=== PATIENT | male | born 1985 | race African-American/Black ===

== ENCOUNTER 2016-11-30 14:56 | Emergency (ER) | payer OTHER, MEDICARE, BC ==
[2016-11-30 15:16] VITALS: BP 161/105
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
[2016-11-30] MEDS ORDERED: CYCL10TA2 PO (15:41)
== END 2016-11-30 16:04 | disposition home or self-care (01) ==
LOC: ER 14:56
DX: S16.1XXA Strain of muscle, fascia and tendon at neck level, initial encounter (principal); I10 Essential (primary) hypertension; J45.909 Unspecified asthma, uncomplicated; R51 Headache; G47.30 Sleep apnea, unspecified; Z88.8 Allergy status to other drugs, medicaments and biological substances; V46.4XXA Person boarding or alighting a car injured in collision with other nonmotor vehicle, initial encounter; Y93.89 Activity, other specified; Y99.8 Other external cause status; Y92.488 Other paved roadways as the place of occurrence of the external cause
CPT/HCPCS: 99283

== ENCOUNTER 2019-03-19 12:13 | Emergency (ER) | payer MEDICARE, OTHER ==
[~2019-03-19] VITALS: Ht 172.7 cm; Wt 120.0 kg
[~2019-03-19 12:13] MED LIST: CYCL10TA2 PO; ERYT1OIN6 RIGHTEYE
--- NOTE | 2019-03-19 13:14 | PHYS DOC ---
Past Medical History Past Medical History: Asthma, GERD, Hypertension, Other Additional Past Medical Histor: SLEEP APNEA Past Surgical History: Tonsillectomy, Other Additional Past Surgical Histo: TESTICLE REMOVAL Alcohol Use: None Drug Use: Marijuana Adult General Chief Complaint Chief Complaint: ABDOMINAL PAIN HPI HPI Patient is a 34 year old male who presents with 2 days of dry cough, fever, nausea, diarrhea, nasal congestion and body aches. Patient denies any abdominal pain, chest pain, shortness of breath, numbness or tingling, headache, dizziness, weakness, vomiting. He rates his overall discomfort an 8 out of 10. He states that for the last 6 months or so he has been on clarithromycin, amoxicillin, Flagyl, omeprazole for a stomach infection. Patient states he is not sure what the infection is called. He states he has had no colon problems the past. He states on Monday he began having runny stools without blood in them. He shouldn't has a history of hypertension, GERD, asthma and he is a smoker. Review of Systems Review of Systems Constitutional: fever or chills [] HENT: nasal congestion or denies sore throat [] Respiratory: cough or denies shortness of breath [] GI: Denies abdominal pain. + nausea, denies vomiting, bloody stools or+diarrhea [] Musculoskeletal: Bodyaches. Denies back pain or joint pain [] I All other systems were reviewed and found to be within normal limits, except as documented in this note. Current Medications Current Medications Current Medications Medications (Trade) Dose Ordered Sig/Shannen Start Time Stop Time Status Last Admin Dose Admin Albuterol Sulfate (Ventolin Neb Soln) 2.5 mg 1X ONCE 03/19/19 13:45 03/19/19 13:46 DC 03/19/19 13:37 2.5 MG Iohexol (Omnipaque 300 Mg/ml) 75 ml 1X ONCE 03/19/19 13:45 03/19/19 13:46 DC 03/19/19 13:45 75 ML Ondansetron HCl (Zofran) 4 mg 1X ONCE 03/19/19 13:45 03/19/19 13:46 DC 03/19/19 13:22 4 MG Prednisone (Prednisone) 50 mg 1X ONCE 03/19/19 13:45 03/19/19 13:46 DC 1/21/20 13:23 50 MG Sodium Chloride 1,000 ml @ 1,000 mls/hr 1X ONCE 03/19/19 13:15 03/19/19 14:14 DC 03/19/19 13:21 1,000 MLS/HR Allergies Allergies Allergies Coded Allergies Type Severity Reaction Last Updated Verified lisinopril Adverse Reaction Unknown 12/31/14 No Physical Exam Physical Exam Constitutional: Well developed, well nourished, no acute distress, non-toxic appearance. [] HENT: Normocephalic, atraumatic, bilateral external ears normal, oropharynx moist, no oral exudates, nose normal. Bilateral Tympanic pink and foggy. [] Eyes: PERRLA, EOMI, conjunctiva normal, no discharge. [] Neck: Normal range of motion, no tenderness, supple, no stridor. [] Cardiovascular:Heart rate regular rhythm, no murmur [] Lungs & Thorax: Bilateral breath sounds clear but tighter in upper lobes to auscultation [] Abdomen: Bowel sounds normal, soft, no tenderness, no masses, no pulsatile masses. [] Skin: Warm, dry, no erythema, no rash. [] Back: No tenderness, no CVA tenderness. [] Extremities: No tenderness, no cyanosis, no clubbing, ROM intact, no edema. [] Neurologic: Alert and oriented X 3, normal motor function, normal sensory function, no focal deficits noted. [] Psychologic: Affect normal, judgement normal, mood normal. [] Current Patient Data Vital Signs Vital Signs Date Time Temp Pulse Resp B/P (MAP) Pulse Ox O2 Delivery O2 Flow Rate FiO2 03/19/19 14:28 87 158/103 (121) 100 Room Air 03/19/19 12:27 99.1 16 99.1 Lab Values Laboratory Tests Test 03/19/19 13:07 03/19/19 13:10 White Blood Count 6.6 x10^3/uL (4.0-11.0) Red Blood Count 5.23 x10^6/uL (4.30-5.70) Hemoglobin 14.1 g/dL (13.0-17.5) Hematocrit 42.0 % (39.0-53.0) Mean Corpuscular Volume 80 fL (79-100) Mean Corpuscular Hemoglobin 27 pg (25-35) Mean Corpuscular Hemoglobin Concent 34 g/dL (31-37) Red Cell Distribution Width 17.0 % (11.5-14.5) H Platelet Count 329 x10^3/uL (140-400) Neutrophils (%) (Auto) 34 % (31-73) Lymphocytes (%) (Auto) 54 % (24-48) H Monocytes (%) (Auto) 8 % (0-9) Eosinophils (%) (Auto) 2 % (0-3) Basophils (%) (Auto) 2 % (0-3) Neutrophils # (Auto) 2.3 x10^3/uL (1.8-7.7) Lymphocytes # (Auto) 3.6 x10^3/uL (1.0-4.8) Monocytes # (Auto) 0.5 x10^3/uL (0.0-1.1) Eosinophils # (Auto) 0.2 x10^3/uL (0.0-0.7) Basophils # (Auto) 0.1 x10^3/uL (0.0-0.2) Sodium Level 139 mmol/L (136-145) Potassium Level 3.1 mmol/L (3.5-5.1) L Chloride Level 100 mmol/L (98-107) Carbon Dioxide Level 27 mmol/L (21-32) Anion Gap 12 (6-14) Blood Urea Nitrogen 13 mg/dL (8-26) Creatinine 1.0 mg/dL (0.7-1.3) Estimated GFR (Cockcroft-Gault) 102.9 BUN/Creatinine Ratio 13 (6-20) Glucose Level 102 mg/dL (70-99) H Calcium Level 8.9 mg/dL (8.5-10.1) Total Bilirubin 0.2 mg/dL (0.2-1.0) Aspartate Amino Transferase (AST) 34 U/L (15-37) Alanine Aminotransferase (ALT) 44 U/L (16-63) Alkaline Phosphatase 68 U/L (46-116) Troponin I Quantitative < 0.017 ng/mL (0.000-0.055) Total Protein 7.7 g/dL (6.4-8.2) Albumin 4.0 g/dL (3.4-5.0) Albumin/Globulin Ratio 1.1 (1.0-1.7) Influenza Type A Antigen Negative (NEGATIVE) Influenza Type B Antigen Negative (NEGATIVE) Laboratory Tests 03/19/19 13:07 Laboratory Tests 03/19/19 13:07 EKG EKG [] Radiology/Procedures Radiology/Procedures [] Impressions: [facility] [address] [place] [address] IMAGING REPORT Signed PATIENT: LUIS GONCALVES ACCOUNT: [id number] : 1985 LOCATION: ER AGE: 34 SEX: M EXAM STATUS: REG ER ORD. PHYSICIAN: MIREYA QUIÑONES APRN REASON: cough PROCEDURE: CHEST PA & LATERAL Chest, PA and Lateral: Technique: PA and lateral views of the chest were obtained. History: Cough. Comparison: 07/25/2015. Findings: The heart and pulmonary vasculature appear within normal limits. The lungs are clear. The pleural margins are clear. Impression: No acute chest process is seen. Electronically signed by: Billy Chirinos MD (03/19/2019 2:56 PM) [place] [id number] DICTATED and SIGNED BY: BILLY CHIRINOS MD DATE: 03/19/19 [address] [place] [id number] [place] [address] IMAGING REPORT Signed PATIENT: LUIS GONCALVES ACCOUNT: [id number] : 1985 LOCATION: ER AGE: 34 SEX: M EXAM STATUS: REG ER ORD. PHYSICIAN: MIREYA QUIÑONES APRN REASON: diarrhea, on many abx PROCEDURE: CT ABD PELV W/ IV CONTRST ONLY Examination: CT of the abdomen pelvis with IV contrast HISTORY: History of diarrhea COMPARISON: None available TECHNIQUE: Axial CT images of the abdomen pelvis were performed with IV contrast. Coronal and sagittal reformats are performed. Exposure: One or more of the following individualized dose reduction techniques were utilized for this examination: 1. Automated exposure control 2. Adjustment of the mA and/or kV according to patient size 3. Use of iterative reconstruction technique FINDINGS: The bibasilar lungs are clear. No evidence of free air identified in the abdomen. The liver, spleen, adrenals grossly appears unremarkable. Gallbladder is mildly distended. The stomach is mildly distended. The visualized pancreas grossly appears unremarkable. The small bowel is nondilated. Feces and gas noted in the colon. The appendix is normal. Urinary bladder is mildly distended. The bilateral kidneys enhance symmetrically. No evidence of hydronephrosis. No evidence of lytic bony destructive lesion. IMPRESSION: 1. No acute intra-abdominal findings. Electronically signed by: Billy Chirinos MD (03/19/2019 2:51 PM) [place] [id number] DICTATED and SIGNED BY: BILLY CHIRINOS MD DATE: 03/19/19 1451 Course & Med Decision Making Course & Med Decision Making Alert and oriented. Skin pink warm and dry. Speaks in full clear sentences. Ambulatory to steady gait. PERRLA. Abdomen is soft and nontender. Bilateral tympanic are pink and foggy. Throat is pink without states her swelling. Lungs are clear to auscultation in all lobes but sound tighter in upper lobes. No wheezing. No extremity edema. A concerns for this patient would be 1. asthma exacerbation, 2. C. difficile, 3. Flu. ] Influenza negative. Chest x-ray shows no acute findings. Patient has not had any diarrhea stools in the emergency room. CT abdomen and pelvis show no acute findings. Since the diarrhea started when off his other URI symptoms started this is likely viral. I'll put him on a Medrol Dosepak and he is to call his physician tomorrow for follow-up. Patient needs to have no abdominal pain. Dragon Disclaimer Dragon Disclaimer This electronic medical record was generated, in whole or in part, using a voice recognition dictation system. Departure Departure Impression: Primary Impression: Cough Additional Impressions: Fever Nausea Diarrhea Disposition: HOME, SELF-CARE Condition: STABLE Referrals: Madhavi BURGOS MD (PCP) Patient Instructions: Cough, Adult, Diarrhea, [id number], Diet for Diarrhea, Adult, Nausea, Adult Additional Instructions: Follow-up with Dr. Burgos by calling him tomorrow and let him know. Take medication as prescribed. Drink plenty of fluids. Start Medrol Dosepak tomorrow. Scripts Albuterol Sulfate (Proair Hfa) 8.5 Gm Hfa.aer.ad 1 PUFF INH PRN Q6HRS PRN for SHORTNESS OF BREATH, #1 INHALER Prov: MIREYA QUIÑONES SUPERVISORY INVESTIGATIVE SPECIALIST 03/19/19 Ondansetron (ONDANSETRON ODT) 4 Mg Tab.rapdis 1 TAB PO PRN Q6-8HRS, #16 TAB Prov: INESTERESOMIREYA Sara SUPERVISORY INVESTIGATIVE SPECIALIST 03/19/19 Methylprednisolone (MEDROL) 4 Mg Tab.ds.pk 1 PKG PO UD, #1 PKG Prov: ISHMAELMIREYA M SUPERVISORY INVESTIGATIVE SPECIALIST 03/19/19 Problem Qualifiers Additional Impressions: Fever Fever type: unspecified Qualified Codes: R50.9 - Fever, unspecified Diarrhea Diarrhea type: unspecified type Qualified Codes: R19.7 - Diarrhea, unspecified MIREYA QUIÑONES SUPERVISORY INVESTIGATIVE SPECIALIST Mar 19, 2019 13:14
[2019-03-19 13:20] LABS: BASO # 0.1 x10^3/uL (0.0-0.2); BASO % 2 % (0-3); EOS # 0.2 x10^3/uL (0.0-0.7); EOS % 2 % (0-3); HEMOGLOBIN 14.1 g/dL (13.0-17.5); LYMPH # 3.6 x10^3/uL (1.0-4.8); LYMPH % 54 % (24-48); MEAN CORPUSCULAR HEMOGLOBIN 27 pg (25-35); MEAN CORPUSCULAR HGB CONC 34 g/dL (31-37); MEAN CORPUSCULAR VOLUME 80 fL (79-100); MONO # 0.5 x10^3/uL (0.0-1.1); MONO % 8 % (0-9); NEUT # 2.3 x10^3/uL (1.8-7.7); NEUT % 34 % (31-73); PLATELET COUNT 329 x10^3/uL (140-400); RED BLOOD COUNT 5.23 x10^6/uL (4.30-5.70); WHITE BLOOD COUNT 6.6 x10^3/uL (4.0-11.0)
[2019-03-19] MEDS: IV NORMAL SALINE 1000ML BAG 1,000 ML IV ONE (13:21)
[2019-03-19] MEDS: ONDANSETRON PF 4 MG/2 ML VIAL. IVP ONE (13:22)
[2019-03-19] MEDS: predniSONE 10 MG TABLET PO ONE (13:23)
[2019-03-19 13:33] LABS: CALCIUM 8.9 mg/dL (8.5-10.1); GFR 102.9; POTASSIUM 3.1 mmol/L (3.5-5.1)
[2019-03-19 13:36] LABS: INFLUENZA A PATIENT NEGATIVE (NEGATIVE); INFLUENZA B PATIENT NEGATIVE (NEGATIVE)
[2019-03-19] MEDS: ALBUTEROL SULFATE 2.5 MG/3 ML NEBU. NEB ONE (13:37)
[2019-03-19 13:38] LABS: ALBUMIN/GLOBULIN RATIO 1.1 (1.0-1.7); TOTAL BILIRUBIN 0.2 mg/dL (0.2-1.0); TOTAL PROTEIN 7.7 g/dL (6.4-8.2)
[2019-03-19] MEDS: IOHEXOL 300 MG/ML 100ML VIAL. IV ONE (13:45)
--- NOTE | 2019-03-19 14:54 | RAD ---
Examination: CT of the abdomen pelvis with IV contrast HISTORY: History of diarrhea COMPARISON: None available TECHNIQUE: Axial CT images of the abdomen pelvis were performed with IV contrast. Coronal and sagittal reformats are performed. Exposure: One or more of the following individualized dose reduction techniques were utilized for this examination: 1. Automated exposure control 2. Adjustment of the mA and/or kV according to patient size 3. Use of iterative reconstruction technique FINDINGS: The bibasilar lungs are clear. No evidence of free air identified in the abdomen. The liver, spleen, adrenals grossly appears unremarkable. Gallbladder is mildly distended. The stomach is mildly distended. The visualized pancreas grossly appears unremarkable. The small bowel is nondilated. Feces and gas noted in the colon. The appendix is normal. Urinary bladder is mildly distended. The bilateral kidneys enhance symmetrically. No evidence of hydronephrosis. No evidence of lytic bony destructive lesion. IMPRESSION: 1. No acute intra-abdominal findings. Electronically signed by: Billy Chirinos MD (03/19/2019 2:51 PM) [place] [id number]
--- NOTE | 2019-03-19 14:59 | RAD ---
Chest, PA and Lateral: Technique: PA and lateral views of the chest were obtained. History: Cough. Comparison: 07/25/2015. Findings: The heart and pulmonary vasculature appear within normal limits. The lungs are clear. The pleural margins are clear. Impression: No acute chest process is seen. Electronically signed by: Billy Chirinos MD (03/19/2019 2:56 PM) [place] [id number]
[2019-03-19 15:35] VITALS: BP 161/105
[2019-03-19] MEDS ORDERED: METH4TAB2 PO (15:39)
[2019-03-19] MEDS ORDERED: ONDA4TAB12 PO (15:39)
[2019-03-19] MEDS ORDERED: ALBU2.5V8 INH (15:40)
== END 2019-03-19 15:55 | disposition home or self-care (01) ==
LOC: ER 12:13
DX: R05 Cough (principal); R50.9 Fever, unspecified; R19.7 Diarrhea, unspecified; R11.0 Nausea; R09.81 Nasal congestion; M79.10 Myalgia, unspecified site; K21.9 Gastro-esophageal reflux disease without esophagitis; J45.909 Unspecified asthma, uncomplicated; I10 Essential (primary) hypertension; F17.200 Nicotine dependence, unspecified, uncomplicated; Z88.8 Allergy status to other drugs, medicaments and biological substances
CPT/HCPCS: 36415; 71046; 74177; 80053; 84484; 85025; 87804; 94640; 96361; 96374; 99285; J2405; J7030; J7512; J7613; Q9967

== ENCOUNTER 2019-11-11 05:09 | Emergency (ER) | payer MEDICARE, OTHER ==
[~2019-11-11] VITALS: Ht 172.7 cm; Wt 112.3 kg
[~2019-11-11 05:09] MED LIST changes: +ALBU2.5V8 INH; +METH4TAB2 PO; +ONDA4TAB12 PO
--- NOTE | 2019-11-11 05:27 | PHYS DOC ---
Past Medical History Past Medical History: Asthma, GERD, Hypertension, Other Additional Past Medical Histor: SLEEP APNEA Past Surgical History: Tonsillectomy, Other Additional Past Surgical Histo: TESTICLE REMOVAL Smoking Status: Current Every Day Smoker Alcohol Use: None Drug Use: Marijuana General Adult EDM: Chief Complaint: CHEST PAIN HPI: HPI: Patient is a 34 male presents with report of 2-day history of chest pain. Patient reports worse with deep inspiration and any movement. Reports the pain is sharp in nature. Denies fever or chills. Denies cough. Denies leg swelling or calf tenderness. Cardiac risk factors of smoking, high blood pressure, and questionable family history. Patient reports mother had history of DVT. Denies leg swelling or calf tenderness. Denies trauma. Denies known exposure to COVID-19. Review of Systems: Review of Systems: Constitutional: Denies fever or chills Eyes: Denies redness or eye pain HENT: Denies nasal congestion or sore throat Respiratory: Denies cough; reports shortness of breath Cardiovascular: Reports chest pain; denies palpitations GI: Denies abdominal pain, nausea, or vomiting : Denies dysuria or hematuria Musculoskeletal: Denies back pain or joint pain Integument: Denies rash or skin lesions Neurologic: Denies headache, focal weakness or sensory changes Complete systems were reviewed and found to be within normal limits, except as documented in this note. Heart Score: HEART Score for Chest Pain: HEART Score for Chest Pain Response (Comments) Value History Moderately Suspicious 1 ECG Normal 0 Age < 45 0 Risk Factors >3 Risk Factors or Hx CAD 2 Troponin < Normal Limit 0 Total 3 Risk Factors: Risk Factors: DM, Current or recent (<one month) smoker, HTN, HLP, family history of CAD, obesity. Risk Scores: Score 0 - 3: 2.5% MACE over next 6 weeks - Discharge Home Score 4 - 6: 20.3% MACE over next 6 weeks - Admit for Clinical Observation Score 7 - 10: 72.7% MACE over next 6 weeks - Early Invasive Strategies Allergies: Allergies: Allergies Coded Allergies Type Severity Reaction Last Updated Verified lisinopril Adverse Reaction Unknown 12/31/14 No Physical Exam: PE: Constitutional: Well developed, well nourished, no acute distress, non-toxic appearance HENT: Normocephalic, atraumatic Eyes: Conjunctiva normal, no discharge Neck: Normal range of motion, no tenderness, supple Lungs & Thorax: No respiratory distress, equal chest rise and fall Abdomen: Soft, no tenderness Skin: Warm, dry, no erythema, no rash Extremities: No tenderness, ROM intact, no edema Neurologic: Alert and oriented X 3, no focal deficits noted Psychologic: Affect normal, judgment normal EKG: EKG: @0519 NSR at 72bpm, NO ST elevation, QRS 90ms, QT/QTc 372/409ms Radiology/Procedures: Radiology/Procedures: [] Course & Med Decision Making: Course & Med Decision Making Pertinent Labs and Imaging studies reviewed. (See chart for details) Patient presents with sharp chest discomfort that is worse with movement or deep inspiration. Some cardiac risk factors as well as family history of DVT. No physical exam findings consistent for DVT. EKG stable. Labs obtained and posted to chart. Initial troponin and d-dimer within normal limits. Chest x- ray without acute process. Lipase in 700s. No focal LUQ tenderness on exam. Hypokalemia noted. Symptomatic treatment provided. Hypokalemia addressed. HEART score 3. Patient stable for discharge with outpatient follow-up with PCP/Cardiology/GI. Discussed findings and plan with patient, who acknowledges understanding and agreement. [employer] Disclaimer: [employer] Disclaimer: This electronic medical record was generated, in whole or in part, using a voice recognition dictation system. Departure Departure Impression: Primary Impression: Chest pain Qualified Codes: R07.9 - Chest pain, unspecified Additional Impressions: Hypokalemia Elevated lipase Disposition: HOME, SELF-CARE Condition: STABLE Referrals: Madhavi HOUSTON MD (PCP) ANTOINETTE LAMB MD, SCOTT S MD Patient Instructions: Chest Pain (Nonspecific), [id number], Hypokalemia, Potassium Content of Foods Additional Instructions: Please call and follow up with GI specialist for further evaluation. Scripts Famotidine (PEPCID) 20 Mg Tablet 20 MG PO BID, #20 TAB Prov: ARMIDA PANCHAL DO 11/11/19 Justicifation of Admission Dx: Justifications for Admission: Justification of Admission Dx: N/A ARMIDA PANCHAL DO Nov 11, 2019 05:27
[2019-11-11 05:29] LABS: BASO # 0.1 x10^3/uL (0.0-0.2); BASO % 1 % (0-3); EOS # 0.2 x10^3/uL (0.0-0.7); EOS % 2 % (0-3); HEMOGLOBIN 13.8 g/dL (13.0-17.5); LYMPH # 3.8 x10^3/uL (1.0-4.8); LYMPH % 46 % (24-48); MEAN CORPUSCULAR HEMOGLOBIN 28 pg (25-35); MEAN CORPUSCULAR HGB CONC 34 g/dL (31-37); MEAN CORPUSCULAR VOLUME 82 fL (79-100); MONO # 0.8 x10^3/uL (0.0-1.1); MONO % 10 % (0-9); NEUT # 3.4 x10^3/uL (1.8-7.7); NEUT % 41 % (31-73); PLATELET COUNT 316 x10^3/uL (140-400); RED BLOOD COUNT 5.02 x10^6/uL (4.30-5.70); RED CELL DISTRIBUTION WIDTH 16.3 % (11.5-14.5); WHITE BLOOD COUNT 8.3 x10^3/uL (4.0-11.0)
[2019-11-11] MEDS ORDERED: IV NORMAL SALINE 1000ML BAG 1,000 ML IV ONE (05:30)
[2019-11-11] MEDS ORDERED: ASPIRIN 325 MG TABLET PO ONE (05:30)
[2019-11-11 05:38] LABS: CALCIUM 9.2 mg/dL (8.5-10.1); GFR 102.9; POTASSIUM 3.4 mmol/L (3.5-5.1)
[2019-11-11 05:41] LABS: PROTHROMBIN TIME PATIENT 11.9 SEC (11.7-14.0)
[2019-11-11 05:42] LABS: PARTIAL THROMBOPLASTIN TIME 31 SEC (24-38)
[2019-11-11 05:44] LABS: ALBUMIN 3.9 g/dL (3.4-5.0); ALBUMIN/GLOBULIN RATIO 1.1 (1.0-1.7); MAGNESIUM 2.2 mg/dL (1.8-2.4); TOTAL BILIRUBIN 0.2 mg/dL (0.2-1.0); TOTAL PROTEIN 7.4 g/dL (6.4-8.2)
[2019-11-11 05:54] LABS: D-DIMER < 0.27 ug/mlFEU (0.00-0.50)
[2019-11-11] MEDS ORDERED: KETOROLAC 15 MG/ML VIAL. IVP ONE (06:00)
[2019-11-11] MEDS ORDERED: FAMO-63 PO (07:00)
[2019-11-11 07:08] VITALS: BP 158/75
--- NOTE | 2019-11-11 07:14 | RAD ---
CHEST PA LATERAL INDICATION: chest pain COMPARISON STUDY: 03/19/2019. FINDINGS: Lungs: Normal lung volume. No pulmonary mass or consolidation. The tracheobronchial tree and hilar structures are normal. Pleura: No pleural effusion or pneumothorax. Heart and Mediastinum: The cardiomediastinal silhouette is normal. The great vessels of the thorax are normal. Bones and Soft Tissues: The bones and soft tissues are within normal limits. IMPRESSION: No acute cardiopulmonary process. Electronically signed by: Fili Mendez MD (11/11/2019 7:11 AM) [id number]
[2019-11-11] MEDS ORDERED: POTASSIUM CHLORIDE 20 MEQ TABLET.ER. PO ONE (07:30)
== END 2019-11-11 07:14 | disposition home or self-care (01) ==
LOC: ER 05:09
DX: R07.89 Other chest pain (principal); E87.6 Hypokalemia; R74.8 Abnormal levels of other serum enzymes; J45.909 Unspecified asthma, uncomplicated; K21.9 Gastro-esophageal reflux disease without esophagitis; I10 Essential (primary) hypertension; F17.200 Nicotine dependence, unspecified, uncomplicated; F12.90 Cannabis use, unspecified, uncomplicated; Z90.89 Acquired absence of other organs; Z98.890 Other specified postprocedural states; Z88.8 Allergy status to other drugs, medicaments and biological substances
CPT/HCPCS: 36415; 71046; 80053; 83690; 83735; 83880; 84484; 85025; 85379; 85610; 85730; 96361; 96374; 99285; J1885; J7030

== ENCOUNTER → 2019-12-06 | Outpatient (CLI) | payer MEDICARE, OTHER ==
[2019-11-11 07:08] VITALS: BP 158/75
[~2019-12-06] VITALS: Ht 172.7 cm; Wt 112.0 kg
[~2019-12-06] MED LIST changes: +FAMO-63 PO; +NORMAL SALINE IV ONE; +SINCALIDE IV ONE
--- NOTE | 2019-12-06 08:42 | RAD ---
ABDOMEN LTD History: Reason: EPISODE OF ACUTE PANCREATITIS / Spl. Instructions: / History: Comparison: CT March 19, 2019. Technique: Transabdominal ultrasound images are obtained of the right upper quadrant. Findings: Visualized pancreas is not well visualized due to overlying bowel gas. Liver is normal in echogenicity. Right hepatic lobe measures 14.5 cm. Portal flow is hepatopedal. Gallbladder has an unremarkable appearance. Common bile duct measures 1.8 mm in diameter. The right kidney measures 11.1 x 5.5 x 5.0 cm. No hydronephrosis. IVC not well seen due to overlying bowel gas. IMPRESSION: 1. Pancreas not well evaluated on ultrasound due to overlying bowel gas. If persistent clinical concern, CT can better evaluate. 2. Unremarkable appearance of the gallbladder. No biliary ductal dilatation. Electronically signed by: Apollo Calix DO (12/06/2019 8:40 AM) [id number]
== END ==
LOC: US 08:18
PROVIDERS: ATTEND Internal Medicine Gastroenterology
DX: K85.90 Acute pancreatitis without necrosis or infection, unspecified (principal)
CPT/HCPCS: 76705; 78227; A9537; J2805

== ENCOUNTER → 2019-12-18 | Outpatient (CLI) | payer MEDICARE, OTHER ==
[~2019-12-18] MED LIST changes: -NORMAL SALINE IV ONE; -SINCALIDE IV ONE
--- NOTE | 2019-12-18 17:40 | CARD ---
MR#: [id number] Date of Study: 12/18/2019 Ordering Physician: ANTOINETTE ALMB, Referring Physician: ANTOINETTE LAMB, Tech: Krystina Adames YOLANDA APPROVED REPORT EXAM: Two-dimensional and M-mode echocardiogram with Doppler and color Doppler. Other Information Quality : Good INDICATION Murmur RISK FACTORS Obesity 2D DIMENSIONS RVDd2.9 (2.9-3.5cm)Left Atrium(2D)3.2 (1.6-4.0cm) IVSd1.0 (0.7-1.1cm)Aortic Root(2D)3.1 (2.0-3.7cm) LVDd5.3 (3.9-5.9cm)LVOT Diameter2.3 (1.8-2.4cm) PWd1.1 (0.7-1.1cm)LVDs3.3 (2.5-4.0cm) FS (%) 30.0 %SV89.6 ml LVEF(%)60.0 (>50%) Aortic Valve UMESH (VTI)2.20cm2 Mitral Valve MV E Oxmkftps75.8cm/sMV DECEL KHDS292ic MV A Ljdshwcd69.8cm/sE/A Ratio1.2 Pulmonary Vein S1 Rvsztkfs54.7cm/sD2 Ynvbrjjx19.8cm/s LEFT VENTRICLE The left ventricle is normal size. There is normal left ventricular wall thickness. The left ventricu lar systolic function is normal and the ejection fraction is within normal range. The Ejection Fracti on is 55-60%. There is normal LV segmental wall motion. The left ventricular diastolic function and f illing is normal for age. RIGHT VENTRICLE The right ventricle is normal size. The right ventricular systolic function is normal. ATRIA The left atrium size is normal. The right atrium size is normal. The interatrial septum is intact wit h no evidence for an atrial septal defect or patent foramen ovale as noted on 2-D or Doppler imaging. AORTIC VALVE The aortic valve is normal in structure and function. Doppler and Color Flow revealed no significant aortic regurgitation. There is no significant aortic valvular stenosis. MITRAL VALVE The mitral valve is normal in structure and function. There is no evidence of mitral valve prolapse. There is no mitral valve stenosis. Doppler and Color-flow revealed trace mitral regurgitation. TRICUSPID VALVE The tricuspid valve is normal in structure and function. Doppler and Color Flow revealed no tricuspid valve regurgitation noted. There is no tricuspid valve stenosis. PULMONIC VALVE The pulmonic valve is not well visualized. Doppler and Color Flow revealed trace pulmonic valvular re gurgitation. There is no pulmonic valvular stenosis. GREAT VESSELS The aortic root is normal in size. The ascending aorta is normal in size. The IVC is normal in size a nd collapses >50% with inspiration. PERICARDIAL EFFUSION There is no evidence of significant pericardial effusion. Critical Notification Critical Value: No <Conclusion> The left ventricular systolic function is normal and the ejection fraction is within normal range. Th e Ejection Fraction is 55-60%. There is normal LV segmental wall motion. No significant valvular disease. Signed by : Marc Forte, Electronically Approved : 12/18/2019 17:39:43
== END ==
LOC: ECHO 13:55
PROVIDERS: ATTEND Internal Medicine Cardiovascular Disease
DX: I10 Essential (primary) hypertension (principal)
CPT/HCPCS: 93306

== ENCOUNTER 2020-04-12 15:32 | Emergency (ER) | payer MEDICARE, OTHER ==
[~2020-04-12] VITALS: Ht 172.7 cm; Wt 109.9 kg
[2020-04-12 15:41] VITALS: BP 158/101
[2020-04-12] MEDS ORDERED: POLY10DR3 LEFTEYE (16:06)
--- NOTE | 2020-04-12 16:06 | PHYS DOC ---
Past Medical History Past Medical History: Asthma, GERD, Hypertension, Other Additional Past Medical Histor: SLEEP APNEA Past Surgical History: Tonsillectomy, Other Additional Past Surgical Histo: TESTICLE REMOVAL Smoking Status: Current Every Day Smoker Additional Information: 02/28 ppd Alcohol Use: None Drug Use: Marijuana General Adult EDM: Chief Complaint: EYE PROBLEMS HPI: HPI: Patient is a 35 year old male who presents with left eye pain and irritation of several days duration. The patient notes a several year history of styes bilaterally. Most recently he has had 2 styes on the left eye that both have expressed, and after the second 1 resolved earlier this week the eye became itchy, painful, and red. The patient presented to this ER with a similar complaint last month February 2020 and was given erythromycin cream. Patient noticed increased swelling and discontinued its use. The patient says his vision is still intact, as well as all ocular movements. He says there has been some slight crusting of the left eye, but denies fever or chills or other signs of infection. Review of Systems: Review of Systems: Constitutional: Denies fever or chills Eyes: Patient notes left eye redness, itching, pain. Denies changes in vision HENT: Denies nasal congestion or sore throat Respiratory: Denies cough or shortness of breath Cardiovascular: Denies chest pain or palpitations GI: Denies abdominal pain, nausea, or vomiting : Denies dysuria or hematuria Musculoskeletal: Denies pain with ocular movement. Ocular range of motion intact. Integument: Denies rash or skin lesions Neurologic: Denies headache, focal weakness or sensory changes Complete systems were reviewed and found to be within normal limits, except as documented in this note. Family History: Family History: Hypertension and asthma Allergies: Allergies: Allergies Coded Allergies Type Severity Reaction Last Updated Verified lisinopril Adverse Reaction Intermediate 04/12/20 No Physical Exam: PE: Constitutional: Well developed, well nourished, no acute distress, non-toxic appearance HENT: Normocephalic, atraumatic Eyes: PERRL, EOMI, left conjunctival hemorrhage on temporal side, no discharge Neck: Normal range of motion, no tenderness, supple Lungs & Thorax: No respiratory distress, equal chest rise and fall Abdomen: Soft, no tenderness Skin: Warm, dry, no erythema, no rash Back: No tenderness, no CVA tenderness Extremities: No tenderness, ROM intact, no edema Neurologic: Alert and oriented X 3, normal motor function, normal sensory function, no focal deficits noted Psychologic: Affect normal, judgment normal Current Patient Data: Vital Signs: Vital Signs Date Time Temp Pulse Resp B/P (MAP) Pulse Ox O2 Delivery O2 Flow Rate FiO2 04/12/20 15:41 98.1 80 20 158/101 (120) 99 Room Air 98.1 EKG: EKG: [] Radiology/Procedures: Radiology/Procedures: [] Course & Med Decision Making: Course & Med Decision Making Patient is a 35-year-old male presented with left eye pain, irritation, and redness following the resolution of a stye a couple days prior. Upon exam the appearance of a subconjunctival hematoma on the temporal side of the left eye was noted. Patient also noted some crusting on the same eye the last few days so empiric antibiotics were prescribed, along with the antibiotic eyedrops. Due to frequent recurrence of styes bilaterally the patient was told to follow-up w [facility] at his convenience. Ocular movements and vision was intact, and patient denies fever chills or any other symptoms of infection. Patient stable for discharge with outpatient follow-up with PCP. Discussed findings and plan with patient, who acknowledges understanding and agreement. Gurwinder Disclaimer: Gurwinder Disclaimer: This electronic medical record was generated, in whole or in part, using a voice recognition dictation system. Departure Departure Impression: Primary Impression: Subconjunctival hematoma Qualified Codes: H11.32 - Conjunctival hemorrhage, left eye Disposition: 01 [place] HOME SELF CARE/HOMELESS Condition: STABLE Referrals: Madhavi HOUSTON MD (PCP) Jared JACOBSEN MD Patient Instructions: Subconjunctival Hemorrhage Scripts Polymyxin B Sulf/Trimethoprim (POLYMYXIN B-TMP EYE DROPS) 10 Ml Drops 2 DROP LEFTEYE TID for 7 Days, #10 ML 0 Refills Prov: ARMIDA PANCHAL DO 04/12/20 ARMIDA PANCHAL DO Apr 12, 2020 16:06
== END 2020-04-12 16:27 | disposition home or self-care (01) ==
LOC: ER 15:32
DX: H11.32 Conjunctival hemorrhage, left eye (principal); H57.12 Ocular pain, left eye; R60.0 Localized edema; J45.909 Unspecified asthma, uncomplicated; K21.9 Gastro-esophageal reflux disease without esophagitis; I10 Essential (primary) hypertension; F17.200 Nicotine dependence, unspecified, uncomplicated; F12.90 Cannabis use, unspecified, uncomplicated; Z98.890 Other specified postprocedural states; Z90.89 Acquired absence of other organs
CPT/HCPCS: 99283

== ENCOUNTER 2020-06-26 05:56 | Day surgery (SDC) | payer MEDICARE, OTHER ==
[~2020-06-26] VITALS: Ht 171.4 cm; Wt 113.4 kg
[~2020-06-26 05:56] MED LIST changes: +AMLO-187 PO; +LIDOCAINE 2% PF 5 ML VIAL. ONE; +LOSA1TAB12 PO; +MIDAZOLAM HCL/PF 2 MG/2 ML VIAL. ONE; +ONDANSETRON PF 4 MG/2 ML VIAL. ONE; +POLY10DR3 LEFTEYE; +PROPOFOL 10 MG/ML (20ML) VIAL. IV ONE; +fentaNYL PF VIAL 100 MCG/2 ML VIAL ONE
[2020-06-26] MEDS ORDERED: fentaNYL PF VIAL 100 MCG/2 ML VIAL IVP PRN ×2 (06:00)
[2020-06-26] MEDS ORDERED: IV RINGERS,LACTATED 1000ML 1,000 ML IV SCH (06:00)
[2020-06-26] MEDS ORDERED: MORPHINE SULFATE 2 MG/ML VIAL. IVP PRN (06:00)
[2020-06-26] MEDS ORDERED: HYDROmorphone 2 MG/ML VIAL IVP PRN (06:00)
[2020-06-26] MEDS ORDERED: PROCHLORPERAZINE 10 MG/2 ML VIAL. IVP PRN (06:00)
[2020-06-26] MEDS ORDERED: BUPIVACAINE MPF 0.25% 30 ML VIAL. ONE (07:10)
[2020-06-26] MEDS ORDERED: LIDOCAINE 1% Multi-Dose 20 ML VIAL. ONE (07:12)
[2020-06-26] MEDS ORDERED: HYDR-2761 PO (07:39)
--- NOTE | 2020-06-26 07:40 | DISCH ---
DISCHARGE INSTRUCTIONS Condition on Discharge Condition on Discharge: Stable Activity After Discharge Activity Instructions for Disc: Other, see below (Avoid hard grasping; fine motor use allowed such as eating writing and typing) Weight Bearing Status after Di: Non weight bearing Diet after Discharge Diet after Discharge: Regular Wound Incision Care Wound/Incision Care: Do not change dressing (Keep dressing intact unless wet or soiled) Contacting the after DC Call your doctor for: Concerns you may have Follow-Up Follow up with: Dr. Nettles or Kacie 10 days MARCELO NETTLES MD Jun 26, 2020 07:40
[2020-06-26] MEDS ORDERED: HYDROcodone/APAP 5/325MG 1 TAB TABLET ONE (08:43)
[2020-06-26] MEDS ORDERED: HYDROcodone/APAP 5/325MG 1 TAB TABLET PO ONE ×2 (08:45→09:00)
[2020-06-26 09:15] VITALS: BP 140/78
--- NOTE | 2020-06-26 16:41 | PDOC4 ---
Operative Note Operative Note Date of surgery: 06/26/2020 Preoperative diagnosis: Right carpal tunnel syndrome Postoperative diagnosis: Same with moderate median nerve compression Operative procedure: Right carpal tunnel release Surgeon: Yoon Anesthesia: General Assist: Edgardo deras Estimated blood loss: 2 cc Complications: None Operative indications: Patient has worsening paresthesia in the median nerve distribution on the right hand and EMG verification of carpal tunnel syndrome. I had gone over with him the risks benefits postoperative course of carpal tunnel release including the possibility of infection nerve or blood vessel damage incisional area pain and the possibility of incomplete relief. All his questions were answered he wishes to proceed with surgical evaluation and treatment Operative text: Patient was identified procedure verified patient placed in the supine position on the operating table. After adequate amounts of general anesthesia were administered the right upper extremity was prepped and draped in standard sterile fashion with an upper arm tourniquet. After timeout was performed patient procedure identified and verified the right upper extremity exsanguinated by Esmarch bandage and tourniquet inflated to 250 mmHg. A longitudinal incision was made just distal to the distal palmar crease dissection carried out to identify the transverse carpal ligament which was divided longitudinally under direct vision and verified visually and palpably to be released completely to its proximal and distal extent. Recurrent branch was identified and preserved and the tendons were noted to be free from synovitis. Median nerve was noted to have moderate compression. There irrigation carried with normal saline solution skin closure accomplished with nylon suture in a vertical mattress fashion sterile soft dressings were applied fingers were noted be warm pink following deflation of the tourniquet patient returned to recovery room in stable condition having tolerated procedure well. Edgardo deras present for the procedure and assisted with patient positioning prepping draping retraction closure and dressings MARCELO SEQUEIRA MD Jun 26, 2020 16:41
== END 2020-06-26 09:26 | disposition home or self-care (01) ==
LOC: SURG 05:56
PROVIDERS: ATTEND Orthopaedic Surgery
DX: G56.01 Carpal tunnel syndrome, right upper limb (principal); I10 Essential (primary) hypertension; J45.909 Unspecified asthma, uncomplicated; G47.30 Sleep apnea, unspecified; K21.9 Gastro-esophageal reflux disease without esophagitis; F17.210 Nicotine dependence, cigarettes, uncomplicated; Z79.899 Other long term (current) drug therapy; Z98.890 Other specified postprocedural states
CPT/HCPCS: 64721; A4930; J0690; J2405; J2704; J3010; J3490; A4657; A6452; J2250

== ENCOUNTER → 2020-10-21 | Outpatient (CLI) | payer MEDICARE, OTHER ==
[~2020-10-21] MED LIST changes: +HYDR-2761 PO; -LIDOCAINE 2% PF 5 ML VIAL. ONE; -MIDAZOLAM HCL/PF 2 MG/2 ML VIAL. ONE; -ONDANSETRON PF 4 MG/2 ML VIAL. ONE; -PROPOFOL 10 MG/ML (20ML) VIAL. IV ONE; -fentaNYL PF VIAL 100 MCG/2 ML VIAL ONE
== END ==
LOC: LAB 10:11
PROVIDERS: ATTEND Orthopaedic Surgery
DX: Z01.812 Encounter for preprocedural laboratory examination (principal); Z20.822 Contact with and (suspected) exposure to COVID-19
CPT/HCPCS: U0003; U0005

== ENCOUNTER 2020-10-23 06:00 | Day surgery (SDC) | payer MEDICARE, OTHER ==
[~2020-10-23] VITALS: Ht 171.4 cm; Wt 112.0 kg
[~2020-10-23 06:00] MED LIST changes: +HYDROmorphone 2 MG/ML VIAL IVP PRN; +IV RINGERS,LACTATED 1000ML 1,000 ML IV SCH; +MORPHINE SULFATE 2 MG/ML INJ. IVP PRN; +PROCHLORPERAZINE 10 MG/2 ML VIAL. IVP PRN; +fentaNYL PF VIAL 100 MCG/2 ML VIAL IVP PRN
[2020-10-23 06:18] VITALS: BP 134/86
[2020-10-23] MEDS ORDERED: DEXAMETHASONE SOD PHOS 4 MG/ML VIAL ONE (06:47)
[2020-10-23] MEDS ORDERED: PROPOFOL 10 MG/ML (20ML) VIAL. IV ONE (06:47)
[2020-10-23] MEDS ORDERED: LIDOCAINE 2% PF 5 ML VIAL. ONE (06:47)
[2020-10-23] MEDS ORDERED: ONDANSETRON PF 4 MG/2 ML VIAL. ONE (06:47)
[2020-10-23] MEDS ORDERED: fentaNYL PF VIAL 100 MCG/2 ML VIAL ONE (06:48)
[2020-10-23] MEDS ORDERED: MIDAZOLAM HCL/PF 2 MG/2 ML VIAL. ONE (06:48)
[2020-10-23] MEDS ORDERED: BUPIVACAINE MPF 0.25% 30 ML VIAL. ONE (07:02)
[2020-10-23] MEDS ORDERED: HYDR-2761 PO ×2 (08:22→08:26)
--- NOTE | 2020-10-23 08:24 | DISCH ---
DISCHARGE INSTRUCTIONS Condition on Discharge Condition on Discharge: Stable Activity After Discharge Activity Instructions for Disc: Other, see below (Avoid hard grasping may do fine motor use such as eating writing and typing) Weight Bearing Status after Di: Non weight bearing Diet after Discharge Diet after Discharge: Regular Wound Incision Care Wound/Incision Care: Ice to area for comfort, Keep wound elevated, Do not change dressing (Remove dressing if soiled only may place Band-Aid but otherwise keep on for protection and cushioning) Contacting the DR. after DC Call your doctor for: Concerns you may have Follow-Up Follow up with: Kacie 10 days MARCELO SEQUEIRA MD Oct 23, 2020 08:24
[2020-10-23] MEDS ORDERED: ALBUTEROL SULFATE 2.5 MG/3 ML NEBU. ONE (08:32)
[2020-10-23 08:44] VITALS: BP 131/70
[2020-10-23] MEDS ORDERED: ALBUTEROL SULFATE 2.5 MG/3 ML NEBU. NEB ONE (08:45)
[2020-10-23] MEDS ORDERED: HYDROcodone/APAP 5/325MG 1 TAB TABLET PO ONE (08:45)
--- NOTE | 2020-10-23 15:16 | PDOC4 ---
Operative Note Operative Note Date of surgery: 10/23/2020 Preoperative diagnosis: Left carpal tunnel syndrome Postoperative diagnosis: Same with moderate median nerve compression Operative procedure: Left carpal tunnel release Surgeon: Yoon Electrical Hardware Engineer: Edgardo deras Anesthesia: General Estimated blood loss 1 cc Complications: None Operative indications: Patient is a 35-year-old male with EMG confirmed left carpal tunnel syndrome median nerve compression with sensory and motor changes. I gone over with him the possibility of continued pain nerve or blood vessel damage incomplete relief sensitivity at the incision medical or other anesthesia complications among others all his questions were answered he wishes to proceed with surgical evaluation and treatment Operative text: Patient was identified procedure verified patient placed in the supine position on the operating table. After adequate amounts of general anesthesia were administered the left upper extremity was prepped and draped in standard sterile fashion and after timeout was performed patient procedure identified and verified the left upper extremity was exsanguinated by Esmarch bandage tourniquet inflated to 250 mm mercury. An incision was made just distal to the distal wrist crease dissection carried out down to the transverse carpal ligament which was divided sharply and completely divided proximally and distally with tenotomy scissors under direct vision and complete release verified visually and palpably. Median nerve was noted to have moderate compression and no synovitis or compromise of the flexor tendons was noted. Thorough irrigation carried out normal saline solution and skin closure accomplished with nylon suture in a vertical mattress fashion. Sterile soft dressings were then applied patient was returned to recovery room stable condition having tolerated procedure well. Edgardo deras was present for the procedure and assisted in patient positioning prepping draping retraction closure and dressings MARCELO SEQUEIRA MD Oct 23, 2020 15:16
== END 2020-10-23 09:13 | disposition home or self-care (01) ==
LOC: SURG 06:00
PROVIDERS: ATTEND Orthopaedic Surgery
DX: G56.02 Carpal tunnel syndrome, left upper limb (principal); I10 Essential (primary) hypertension; J45.909 Unspecified asthma, uncomplicated; E66.9 Obesity, unspecified; K21.9 Gastro-esophageal reflux disease without esophagitis; F17.210 Nicotine dependence, cigarettes, uncomplicated; Z79.899 Other long term (current) drug therapy; Z98.890 Other specified postprocedural states; Z88.8 Allergy status to other drugs, medicaments and biological substances
CPT/HCPCS: 64721; A4930; A6402; J0690; J1100; J2250; J2405; J2704; J3010; J3490; J7613; A4657; A6452

== ENCOUNTER 2020-11-23 15:58 | Emergency (ER) | payer MEDICARE, OTHER ==
[~2020-11-23] VITALS: Ht 172.7 cm; Wt 118.0 kg
[~2020-11-23 15:58] MED LIST changes: -HYDROmorphone 2 MG/ML VIAL IVP PRN; -IV RINGERS,LACTATED 1000ML 1,000 ML IV SCH; -MORPHINE SULFATE 2 MG/ML INJ. IVP PRN; -PROCHLORPERAZINE 10 MG/2 ML VIAL. IVP PRN; -fentaNYL PF VIAL 100 MCG/2 ML VIAL IVP PRN
[2020-11-23 17:33] VITALS: BP 184/112
[2020-11-23] MEDS ORDERED: TETRACAINE 0.5% OPHTH SOLUTION 4ML BOTTLE. OD ONE (18:15)
[2020-11-23] MEDS ORDERED: FLUORESCEIN OPHTH TEST STRIP. OD ONE (18:15)
[2020-11-23 18:35] LABS: CALCIUM 8.9 mg/dL (8.5-10.1); CREATININE 0.9 mg/dL (0.7-1.3); GFR 115.5; POTASSIUM 3.5 mmol/L (3.5-5.1)
[2020-11-23 18:41] LABS: ALBUMIN 4.1 g/dL (3.4-5.0); ALBUMIN/GLOBULIN RATIO 1.1 (1.0-1.7); TOTAL BILIRUBIN 0.2 mg/dL (0.2-1.0)
[2020-11-23] MEDS ORDERED: IOHEXOL 300 MG/ML 100ML VIAL. IV ONE (18:45)
--- NOTE | 2020-11-23 19:36 | RAD ---
STUDY: CT orbits/sella without and with contrast INDICATION: Right eye pain. Bleeding. COMPARISON: None. TECHNIQUE: Axial CT imaging through the orbits performed both prior to and after the intravenous admi nistration of 70 cc Omnipaque 300. Coronal and sagittal reformats were obtained. One or more of the following individualized dose reduction techniques were utilized for this examinat ion: 1. Automated exposure control 2. Adjustment of the mA and/or kV according to patient size 3. Use of iterative reconstruction technique. FINDINGS: Symmetric positioning of the globes. No overt inflammatory changes or fluid collection in the presept al region of either orbit. Well-maintained intraconal fat. Symmetric extraocular muscles and optic ne rves. Intact facial bones and visualized calvarium. Unremarkable paranasal sinuses. Several missing m axillary teeth. No periapical lucency involving the residual teeth. No readily apparent abnormality o f the visualized intracranial contents. IMPRESSION: No CT abnormality of the right globe or periorbital soft tissues to help explain reported high pain/b leeding. Electronically signed by: BABAR HANSON MD (11/23/2020 7:34 PM) [facility]
[2020-11-23] MEDS ORDERED: ERYT1OIN3 OD (20:05)
--- NOTE | 2020-11-23 20:06 | PHYS DOC ---
Past Medical History Past Medical History: Asthma, GERD, Hypertension, Other Additional Past Medical Histor: SLEEP APNEA (ISAC NAIK RAT EXTERMINATOR) Past Surgical History: Tonsillectomy Additional Past Surgical Histo: RECENT CARPAL TUNNEL SURGERY ( 1 MONTH) (ISAC NAIK RAT EXTERMINATOR) Smoking Status: Current Every Day Smoker Alcohol Use: None Drug Use: Marijuana (ISAC NAIK RAT EXTERMINATOR) General Adult EDM: Chief Complaint: EYE PROBLEMS HPI: HPI: Patient is a 35 year old male with history of hypertension who presents to the ED today complaining of right eye pain 6/10 described as foreign object sensation, symptoms began this morning when he got up. Patient denies any injuries. He states he was seen by the PCP and was told he has bleeding in his thigh from a ruptured blood vessel and was sent to the ED. Patient denies any vision loss. Reports blurry vision. (ISAC NAIK APRN) Review of Systems: Review of Systems: Constitutional: Denies fever or chills. [] Eyes: Reports right eye pain with a sensation of a foreign object. Musculoskeletal: Denies back pain or joint pain. [] Integument: Denies rash. [] Neurologic: Denies headache, focal weakness or sensory changes. [] Psychiatric: Denies depression or anxiety. [] (ISAC NAIK RAT EXTERMINATOR) Heart Score: C/O Chest Pain: N/A (Going home) Risk Factors: Risk Factors: DM, Current or recent (<one month) smoker, HTN, HLP, family history of CAD, obesity. Risk Scores: Score 0 - 3: 2.5% MACE over next 6 weeks - Discharge Home Score 4 - 6: 20.3% MACE over next 6 weeks - Admit for Clinical Observation Score 7 - 10: 72.7% MACE over next 6 weeks - Early Invasive Strategies (ISAC NAIK RAT EXTERMINATOR) C/O Chest Pain: No (JOHN SHIN DO) Current Medications: Current Medications Medications (Trade) Dose Ordered Sig/Shannen Start Time Stop Time Status Last Admin Dose Admin Fluorescein Sodium (Ful-Isabella) 1 strip 1X ONCE 11/23/20 18:15 11/23/20 18:16 DC Iohexol (Omnipaque 300 Mg/ml) 70 ml 1X ONCE 11/23/20 18:45 11/23/20 18:46 DC 11/23/20 19:09 70 ML Tetracaine HCl (Tetracaine) 1 drop 1X ONCE 11/23/20 18:15 11/23/20 18:16 DC (ISAC NAIK APRN) Allergies: Allergies: Allergies Coded Allergies Type Severity Reaction Last Updated Verified No Known Medication Allergies Allergy Unknown 10/20/20 Yes lisinopril Adverse Reaction Intermediate "DRY COUGH" 10/23/20 No (ISAC NAIK APRN) Physical Exam: PE: Constitutional: Well developed, well nourished, no acute distress, non-toxic appearance. [] Eyes: PERRLA, EOMI, right conjunctiva is slightly injected with clear drainage, inner chambers appear intact in the right eye Right eye exam under Ortega lamp Right eye was numbed with tetracaine and stained with fluorescein, and obvious corneal abrasion was noted at 1700 position. Skin: Warm, dry, no erythema, no rash. [] Back: No tenderness, no CVA tenderness. [] Extremities: No tenderness, no cyanosis, no clubbing, ROM intact, no edema. [] Neurologic: Alert and oriented X 3, normal motor function, normal sensory function, no focal deficits noted. [] Psychologic: Affect normal, judgement normal, mood normal. [] (ISAC NAIK APRN) Current Patient Data: Labs: Laboratory Tests Test 11/23/20 18:15 Sodium Level 141 mmol/L (136-145) Potassium Level 3.5 mmol/L (3.5-5.1) Chloride Level 105 mmol/L (98-107) Carbon Dioxide Level 27 mmol/L (21-32) Anion Gap 9 (6-14) Blood Urea Nitrogen 11 mg/dL (8-26) Creatinine 0.9 mg/dL (0.7-1.3) Estimated GFR (Cockcroft-Gault) 115.5 BUN/Creatinine Ratio 12 (6-20) Glucose Level 84 mg/dL (70-99) Calcium Level 8.9 mg/dL (8.5-10.1) Total Bilirubin 0.2 mg/dL (0.2-1.0) Aspartate Amino Transferase (AST) 19 U/L (15-37) Alanine Aminotransferase (ALT) 44 U/L (16-63) Alkaline Phosphatase 64 U/L (46-116) Total Protein 8.0 g/dL (6.4-8.2) Albumin 4.1 g/dL (3.4-5.0) Albumin/Globulin Ratio 1.1 (1.0-1.7) Laboratory Tests 11/23/20 18:15 Vital Signs: Vital Signs Date Time Temp Pulse Resp B/P (MAP) Pulse Ox O2 Delivery O2 Flow Rate FiO2 11/23/20 17:33 98.1 84 14 184/112 (136) 99 Room Air 98.1 (ISAC NAIK APRN) EKG: EKG: [] (ISAC NAIK APRN) Radiology/Procedures: Radiology/Procedures: []PROCEDURE: CT ORBITS WO/W CONTRAST STUDY: CT orbits/sella without and with contrast INDICATION: Right eye pain. Bleeding. COMPARISON: None. TECHNIQUE: Axial CT imaging through the orbits performed both prior to and after the intravenous administration of 70 cc Omnipaque 300. Coronal and sagittal reformats were obtained. One or more of the following individualized dose reduction techniques were utilized for this examination: 1. Automated exposure control 2. Adjustment of the mA and/or kV according to patient size 3. Use of iterative reconstruction technique. FINDINGS: Symmetric positioning of the globes. No overt inflammatory changes or fluid collection in the preseptal region of either orbit. Well-maintained intraconal fat. Symmetric extraocular muscles and optic nerves. Intact facial bones and visualized calvarium. Unremarkable paranasal sinuses. Several missing maxillary teeth. No periapical lucency involving the residual teeth. No readily apparent abnormality of the visualized intracranial contents. IMPRESSION: No CT abnormality of the right globe or periorbital soft tissues to help explain reported high pain/bleeding. Electronically signed by: BABAR HANSON MD (11/23/2020 7:34 PM) [facility] DICTATED and SIGNED BY: BABAR HANSON MD DATE: 11/23/20 [id number] (ISAC NAIK APRN) Course & Med Decision Making: Course & Med Decision Making Pertinent Labs and Imaging studies reviewed. (See chart for details) This a 35-year-old male patient presented to the ED today complaining of right eye pain sensation of a foreign object, symptoms began this morning when he woke up. Patient was seen by the PCP and was informed he has a ruptured blood vessel needed to be evaluated. Blood pressure was 184/112 with a heart rate of 84, patient states he has blood pressure medicine that he needs to roller picker at the pharmacy and preferred not to be given any blood pressure medicine in the ED Visual acuity documented in nursing note. Elton-Pen not available in the ED CT of the orbits-negative for any acute findings Physical exam noted for corneal abrasion to the right eye-discharged on erythromycin, tetanus is up-to-date Provided farmworker field crop for follow-up. (ISAC NAIK APRN) Course & Med Decision Making I was the Attending physician on the above date of service of this patient. This patient was evaluated, examined, treated, and dispositioned from the emergency department by the mid-level practitioner. Although I was working at the time , no assistance was requested. Electronically signed, John Shin DO (JOHN SHIN DO) Gurwinder Disclaimer: Gurwinder Disclaimer: This electronic medical record was generated, in whole or in part, using a voice recognition dictation system. (ISAC NAIK APRN) Departure Departure Impression: Primary Impression: Hypertension Qualified Codes: I10 - Essential (primary) hypertension Additional Impression: Corneal abrasion, right Qualified Codes: S05.01XA - Injury of conjunctiva and corneal abrasion without foreign body, right eye, initial encounter Disposition: HOME / SELF CARE / HOMELESS Condition: STABLE Referrals: Madhavi HOUSTON MD (PCP) Follow-up in 1 week RORY LAN MD Follow-up in 1 week Patient Instructions: Eye - Corneal Abrasion, [id number] Additional Instructions: You have a corneal abrasion to your right eye. Please follow-up with the provided farmworker field crop in 1 to 2 weeks. Use the prescribed eye ointment as ordered. Please ensure you get your blood pressure medicine today and start taking the medicine. Scripts Erythromycin Base (Erythromycin) 1 Gm Oint...g. 0.5 BELÉN OD Q4HRS W/A, #1 MISC Prov: ISAC NAIK APRN 11/23/20 ISAC NAIK APRN Nov 23, 2020 20:06 JOHN SHIN DO Nov 27, 2020 17:33
== END 2020-11-23 20:15 | disposition home or self-care (01) ==
LOC: ER 15:58
DX: S05.01XA Injury of conjunctiva and corneal abrasion without foreign body, right eye, initial encounter (principal); I10 Essential (primary) hypertension; K21.9 Gastro-esophageal reflux disease without esophagitis; J45.909 Unspecified asthma, uncomplicated; F17.200 Nicotine dependence, unspecified, uncomplicated; Z88.6 Allergy status to analgesic agent; X58.XXXA Exposure to other specified factors, initial encounter; Y93.89 Activity, other specified; Y92.89 Other specified places as the place of occurrence of the external cause; Y99.8 Other external cause status
CPT/HCPCS: 36415; 70482; 80053; 99285; Q9967

== ENCOUNTER 2021-05-24 07:58 | Emergency (ER) | payer MEDICARE, OTHER ==
[~2021-05-24] VITALS: Ht 172.7 cm; Wt 114.4 kg
[~2021-05-24 07:58] MED LIST changes: +CYCL10TA19 PO; -CYCL10TA2 PO; +ERYT1OIN3 OD
[2021-05-24] MEDS ORDERED: AMOX500T PO (08:32)
--- NOTE | 2021-05-24 08:32 | ED.ADGEN ---
Past Medical History Past Medical History: Asthma, GERD, Hypertension, Other Additional Past Medical Histor: SLEEP APNEA Past Surgical History: Tonsillectomy Additional Past Surgical Histo: CARPAL TUNNEL Smoking Status: Current Every Day Smoker Additional Information: 0.5 PPD Alcohol Use: None Drug Use: Marijuana General Adult EDM: Chief Complaint: EARACHE/EAR PAIN HPI: HPI: Patient is a 36 year old male coming in for right ear pain. Patient states for the past 3 to 4 days he has had congestion, runny nose and sinus pressure. Last night started having pressure in his right ear. Has been taking DayQuil with some improvement. No history of ear problems. Review of Systems: Review of Systems: All other systems within normal limits except for as noted in the HPI Allergies: Allergies: Allergies Coded Allergies Type Severity Reaction Last Updated Verified lisinopril Adverse Reaction Intermediate "DRY COUGH" 10/23/20 No Physical Exam: PE: Constitutional: Well developed, well nourished, no acute distress, non-toxic appearance. [] HENT: Normocephalic, atraumatic, bilateral external ears normal, nose normal. Left TM normal, right TM erythematous with semipurulent fluid behind it [] Eyes: PERRLA, conjunctiva normal, no discharge. [] Neck: No rigidity, supple, no stridor. [] Cardiovascular: Regular rate and rhythm, brisk cap refill [] Lungs & Thorax: Non labored symmetric respirations, no tachypnea or respiratory distress [] Abdomen: Soft, nondistended. Skin: Warm, dry, no erythema, no rash. [] Back: Unremarkable Extremities: No deformities, range of motion grossly intact, no lower extremity edema [] Neurologic: Alert and oriented X 3, no focal deficits noted. [] Psychologic: Affect normal, judgement normal, mood normal. [] Current Patient Data: Vital Signs: Vital Signs Date Time Temp Pulse Resp B/P (MAP) Pulse Ox O2 Delivery O2 Flow Rate FiO2 05/24/21 08:04 98.1 93 17 222/122 (155) 96 Room Air 98.1 EKG: EKG: [] Heart Score: C/O Chest Pain: No Risk Factors: Risk Factors: DM, Current or recent (<one month) smoker, HTN, HLP, family history of CAD, obesity. Risk Scores: Score 0 - 3: 2.5% MACE over next 6 weeks - Discharge Home Score 4 - 6: 20.3% MACE over next 6 weeks - Admit for Clinical Observation Score 7 - 10: 72.7% MACE over next 6 weeks - Early Invasive Strategies Radiology/Procedures: Radiology/Procedures: [] Course & Med Decision Making: Course & Med Decision Making Pertinent Labs and Imaging studies reviewed. (See chart for details) [] Dragon Disclaimer: Dragon Disclaimer: This electronic medical record was generated, in whole or in part, using a voice recognition dictation system. Departure Departure Impression: Primary Impression: Right otitis media with effusion Disposition: HOME / SELF CARE / HOMELESS Condition: STABLE Referrals: Madhavi HOUSTON MD (PCP) Patient Instructions: Otitis Media, Adult Additional Instructions: While pharmacy knot picker cloth a decongestant such as Sania-D or Zyrtec-D (something that contains pseudoephedrine) and use as directed on packaging. Scripts Amoxicillin (AMOXICILLIN) 500 Mg Tablet 2 TAB PO BID for antibiotic for 10 Days, #40 TAB Prov: DARLENE MOCK MD 05/24/21 DARLENE MOCK MD May 24, 2021 08:32
[2021-05-24 08:50] VITALS: BP 194/100
== END 2021-05-24 08:52 | disposition home or self-care (01) ==
LOC: ER 07:58
DX: H65.91 Unspecified nonsuppurative otitis media, right ear (principal); K21.9 Gastro-esophageal reflux disease without esophagitis; I10 Essential (primary) hypertension; J45.909 Unspecified asthma, uncomplicated; F17.200 Nicotine dependence, unspecified, uncomplicated; Z88.6 Allergy status to analgesic agent
CPT/HCPCS: 99283